=== PATIENT | male | born 1955 | race Caucasian/White ===

== ENCOUNTER 2021-07-17 06:11 | Day surgery (SDC) | payer MEDICARE, OTHER ==
[~2021-07-17] VITALS: Ht 180 cm; Wt 86.0 kg
[~2021-07-17 06:11] MED LIST: ALLEGRA ALLERG180 MG PO; BUPROPION XL300 MG PO; CELECOXIB200 MG PO; LEVOTHYROXINE137 MCG PO; LOSARTAN POTASS25 MG PO; MOMETASONE; PRILOSEC20 MG PO; SYNTHROID112 MC1 PO
[2021-07-18 07:14] LABS: BASOPHIL 0.4 % (0-2); HCT 37.6 % (42.0-52.0); HGB 12.5 g/dl (13.2-18.0); LYMPHOCYTE 16.7 % (15-48); MCH 31.6 pg (25.0-31.0); MCHC 33.2 g/dL (32.0-36.0); MCV 94.9 fL (78.0-100.0); MONOCYTE 10.5 % (0-12); NEUTROPHIL 70.1 % (41-80); NRBC 0; PLT 183 K/uL (150-400); RBC 3.96 M/uL (4.70-6.00); WBC 10.4 K/uL (4.0-10.5)
[2021-07-18 07:34] LABS: BUN/CREAT RATIO (CALC) 10.8 RATIO; CREATININE 0.83 mg/dL (0.67-1.17); POTASSIUM 4.3 mmol/L (3.5-5.1)
[2021-07-18] MEDS ORDERED: CHILDREN'S ASPI81 MG PO (08:25)
[2021-07-18] MEDS ORDERED: FEOSOL325 MG PO (08:25)
== END 2021-07-18 11:55 | disposition home or self-care (01) ==
LOC: FAS 06:11 → FMS 08:03 → FAS 08:30 → FMS 20:01 → FAS 20:01 → FMS 07-18 11:55
PROVIDERS: Orthopaedic Surgery
DX: M17.0 Bilateral primary osteoarthritis of knee (principal); M75.101 Unspecified rotator cuff tear or rupture of right shoulder, not specified as traumatic; I10 Essential (primary) hypertension; E78.5 Hyperlipidemia, unspecified; K21.9 Gastro-esophageal reflux disease without esophagitis; E89.0 Postprocedural hypothyroidism; Z79.899 Other long term (current) drug therapy
CPT/HCPCS: 36415; 73560; 80048; 85025; 86850; 86900; 86901; 94010; 97162; 97166; 97530-GP; 97535; C1713; C1776; J0171; J0697; J1170; J1885; J2250; J2270; J2704; J2795; J3010; J7120